=== PATIENT | male | born 1995 | race Caucasian/White ===

== ENCOUNTER 2017-11-20 16:33 | Emergency (ER) | payer OTHER ==
[~2017-11-20] VITALS: Ht 172.7 cm; Wt 59.0 kg
[~2017-11-20 16:33] MED LIST: ALBU90I INH; ALBU90OI6 INH; AMOX500 PO; AZIT250 PO; Bactrim Ds Tab1 EACH PO; Monodox100 MG PO; PRED20 PO; PROCODE120 PO; RXHYD5325 PO
== END 2017-11-20 17:42 | disposition home or self-care (01) ==
LOC: ER 16:33
DX: S01.01XA Laceration without foreign body of scalp, initial encounter (principal); F17.200 Nicotine dependence, unspecified, uncomplicated; W01.0XXA Fall on same level from slipping, tripping and stumbling without subsequent striking against object, initial encounter
CPT/HCPCS: 12001; 99283

== ENCOUNTER 2020-08-06 17:43 | Emergency (ER) | payer SELFPAY ==
[~2020-08-06] VITALS: Ht 172.7 cm; Wt 63.5 kg
[2020-08-06] MEDS ORDERED: AMIT10 PO (17:50)
== END 2020-08-06 20:10 | disposition home or self-care (01) ==
LOC: ER 17:43
DX: S80.811A Abrasion, right lower leg, initial encounter (principal); S30.811A Abrasion of abdominal wall, initial encounter; S90.811A Abrasion, right foot, initial encounter; F17.200 Nicotine dependence, unspecified, uncomplicated; Z23 Encounter for immunization; Z79.899 Other long term (current) drug therapy; V29.9XXA Motorcycle rider (driver) (passenger) injured in unspecified traffic accident, initial encounter; Y92.410 Unspecified street and highway as the place of occurrence of the external cause
CPT/HCPCS: 36415; 73590; 73630; 90471; 90714; 96374; 99284-25; J3010

== ENCOUNTER 2020-11-30 19:13 | Emergency (ER) | payer SELFPAY ==
[~2020-11-30] VITALS: Ht 170.2 cm; Wt 63.5 kg
[~2020-11-30 19:13] MED LIST changes: +AMIT10 PO
[2020-11-30 19:39] LABS: BASOPHILS ABSOLUTE AUTO 0.07 K/mm3 (0.00-0.23); BASOPHILS PERCENT AUTO 0 % (0-2); EOSINOPHILS ABSOLUTE AUTO 0.02 K/mm3 (0.00-0.68); EOSINOPHILS PERCENT AUTO 0 % (0-6); Hematocrit 43.7 % (37.0-53.0); Hemoglobin 14.7 g/dL (13.5-17.5); IMMATURE GRAN ABSOLUTE AUTO 0.12 K/mm3 (0.00-0.10); IMMATURE GRAN PERCENT AUTO 1 % (0-1); LYMPHOCYTES ABSOLUTE AUTO 0.97 K/mm3 (0.84-5.20); LYMPHOCYTES PERCENT AUTO 4 % (21-46); MONOCYTES ABSOLUTE AUTO 1.52 K/mm3 (0.16-1.47); MONOCYTES PERCENT AUTO 6 % (4-13); Mean Corpuscular HGB 27.9 pg (26.0-34.0); Mean Corpuscular HGB Conc 33.6 g/dL (31.5-36.5); Mean Corpuscular Volume 83 fL (80-100); Mean Platelet Volume 10.4 fL (9.1-12.4); NEUTROPHILS ABSOLUTE AUTO 20.91 K/mm3 (1.96-9.15); NEUTROPHILS PERCENT AUTO 89 % (41-73); Platelet Count 232 K/mm3 (150-400); RDW Coefficient Variation 12.4 % (11.7-14.2); RDW Standard Deviation 37.8 fL (35.1-46.3); Red Blood Cell Count 5.27 M/mm3 (4.30-5.90); White Blood Cell Count 23.61 K/mm3 (4.00-11.30)
[2020-11-30 19:58] LABS: Alanine Aminotransfer (ALT/SGP 51 U/L (12-78); Albumin, Blood 3.7 g/dL (3.4-5.0); Albumin/Globulin Ratio 0.9 (0.8-1.8); Alk Phos 144 U/L (50-136); Anion Gap 4 mmol/L (6-16); Aspartate Aminotrans (AST/SGOT 46 U/L (12-37); Bilirubin, Total 0.7 mg/dL (0.1-1.0); Blood Urea Nitrogen 12 mg/dL (8-24); Bun/Creatinine Ratio 15.4 (12.0-20.0); CO2, Blood 28 mmol/L (21-32); Calcium, Blood 9.2 mg/dL (8.5-10.1); Chloride, Blood 105 mmol/L (98-108); Creatinine, Blood 0.78 mg/dL (0.60-1.20); Globulin, Blood 4.2 g/dL (2.2-4.0); Glomerular Filtration Rate >60 (60-); Glucose, Blood 103 mg/dL (70-99); Potassium, Blood 4.4 mmol/L (3.5-5.5); Sodium, Blood 137 mmol/L (136-145); Total Protein, Blood 7.9 g/dL (6.4-8.2)
[2020-11-30 21:15] LABS: Source, Urine Clean Catch
[2020-11-30 21:20] LABS: Bilirubin, Urine Neg (Neg); Blood, Urine 4+ (Neg); Glucose Qualitative, Urine Neg (Neg); Ketones, Urine Neg (Neg); Leukocyte Esterase, Urine 3+ (Neg); Nitrite, Urine Pos (Neg); Protein, Urine 2+ (Neg); Urobilinogen, Urine NORM (Normal)
[2020-11-30 21:24] LABS: Appearance, Urine Hazy (Clear); Color, Urine Yellow (P-Yellow)
[2020-11-30 21:32] LABS: Bacteria Many /hpf; Squamous Epithelial Cells Rare /hpf (Few); White Blood Cells, Urine 25-50 /hpf (0-5)
== END 2020-11-30 23:21 | disposition short-term general hospital (02) ==
LOC: ER 19:13
PROVIDERS: Emergency Medicine
DX: A41.9 Sepsis, unspecified organism (principal); N13.6 Pyonephrosis
CPT/HCPCS: 36415; 74176; 80053; 81001; 83605; 85025; 87040; 87077; 87086; 87147; 87186; 96365; 96375; 96376; 99285-25; J2270; J2405; J2543; J7030

== ENCOUNTER 2023-05-16 13:16 | Emergency (ER) | payer OTHER ==
[~2023-05-16] VITALS: Ht 172.7 cm; Wt 61.2 kg
[2023-05-16 13:24] VITALS: BP 145/93
== END 2023-05-16 14:12 | disposition home or self-care (01) ==
LOC: ER 13:16
DX: S01.01XA Laceration without foreign body of scalp, initial encounter (principal); W20.8XXA Other cause of strike by thrown, projected or falling object, initial encounter; Z79.899 Other long term (current) drug therapy
CPT/HCPCS: 12001; 99282-25